=== PATIENT | female | born 1985 | race Caucasian/White ===

== ENCOUNTER 2017-06-14 19:56 | Emergency (ER) | payer SELFPAY, MEDICAID ==
[2017-06-14] MEDS: ACETAMINOPHEN 325 MG TAB PO (23:23)
[2017-06-14] MEDS: AMOXICILLIN SUSP 400 MG/5 ML ORAL SYRINGE *ED PO (23:23)
== END 2017-06-14 23:53 | disposition home or self-care (01) ==
LOC: M ED 19:56
DX: J02.0 Streptococcal pharyngitis (principal); F17.210 Nicotine dependence, cigarettes, uncomplicated
CPT/HCPCS: 87880

== ENCOUNTER 2019-05-31 01:54 | Emergency (ER) | payer OTHER, SELFPAY ==
[~2019-05-31] VITALS: Ht 154.9 cm; Wt 85.1 kg
[~2019-05-31 01:54] MED LIST: AMOX400S2 PO; IBUP-1114 PO
[2019-05-31] MEDS ORDERED: GI COCKTAIL 50ML BTL(HYOSCYAMINE/MAALOX/LIDOCAINE VISCOUS)(1:3:1) PO ONE (02:15)
[2019-05-31 02:35] LABS: BASO % 0.5 % (0.0-1.0); EOS # 0.1 10^3/uL (0.0-0.5); EOS % 1.8 % (0.0-3.0); HEMATOCRIT 40.9 % (36.0-47.0); HEMOGLOBIN 13.5 g/dl (12.0-15.5); LYMPH # 2.3 10^3/uL (1.5-5.0); LYMPH % 36.6 % (24.0-44.0); MEAN CORPUSCULAR HEMOGLOBIN 30.6 pg (27.0-33.0); MEAN CORPUSCULAR VOLUME 92.7 fl (80.0-96.0); MONO # 0.5 10^3/uL (0.0-0.8); MONO % 7.5 % (0.0-5.0); NEUTROPHILS # 3.4 10^3/uL (1.5-8.5); NEUTROPHILS % 53.4 % (36.0-66.0); PLATELET COUNT, AUTOMATED 128 10^3/uL (150-450); RED BLOOD COUNT 4.41 10^6/uL (4.00-5.40); WHITE BLOOD COUNT 6.3 10^3/uL (4.0-10.0)
[2019-05-31 02:51] LABS: HCG, SERUM QUALITATIVE NEGATIVE (NEGATIVE)
[2019-05-31 02:54] LABS: ALBUMIN 3.2 GM/DL (3.2-5.2); ALT/SGPT 23 U/L (12-78); BILIRUBIN,DIRECT 0.1 MG/DL (0.0-0.2); BILIRUBIN,TOTAL 0.4 MG/DL (0.2-1.0); BLOOD UREA NITROGEN 12 MG/DL (7-18); CALCIUM LEVEL 8.2 MG/DL (8.5-10.1); CARBON DIOXIDE LEVEL 28 MEQ/L (21-32); CHLORIDE LEVEL 110 MEQ/L (98-107); CREATININE FOR GFR 0.74 MG/DL (0.55-1.30); GLOMERULAR FILTRATION RATE > 60.0 (>60); GLUCOSE, FASTING 89 MG/DL (70-100); LIPASE 106 U/L (73-393); POTASSIUM SERUM 4.1 MEQ/L (3.5-5.1); SODIUM LEVEL 142 MEQ/L (136-145); TOTAL PROTEIN 6.4 GM/DL (6.4-8.2)
[2019-05-31] MEDS ORDERED: MORPHINE 10 MG/ML 1ML VIAL (J2270) IM ONE (04:30)
--- NOTE | 2019-05-31 04:33 | REPVR ---
PROCEDURE INFORMATION: Exam: US Abdomen Limited, Right Upper Quadrant Exam date and time: 05/31/2019 3:56 AM Age: 34 years old Clinical indication: Abdominal pain; Epigastric; Additional info: Gb/biliary eval TECHNIQUE: Imaging protocol: Real-time ultrasound of the abdomen with image documentation. Examination was focused on the right upper quadrant. COMPARISON: No relevant prior studies available. FINDINGS: Liver: The liver demonstrates no focal defects and measures 14.7 cm. Gallbladder: The gallbladder demonstrates multiple gallstones with shadowing. There is no wall thickening measuring 2 mm. Common bile duct: The CBD measures 4 mm. Pancreas: The pancreatic head and body appear normal. The tail is not seen due to gas shadowing. Right kidney: The right kidney is normal measuring 10.2 cm with no hydronephrosis. IMPRESSION: 1. Cholelithiasis with multiple gallstones. No gallbladder wall thickening. 2. Otherwise negative right upper quadrant sonogram. Electronically signed by: Jc Smith On 05/31/2019 04:32:49 AM
[2019-05-31] MEDS ORDERED: NORCO 5/325MG TABLET (BULK FOR ED) PO ONE (05:15)
[2019-05-31 05:18] VITALS: BP 155/67
== END 2019-05-31 05:28 | disposition home or self-care (01) ==
LOC: M ED 01:54
DX: K80.20 Calculus of gallbladder without cholecystitis without obstruction (principal)
CPT/HCPCS: 76705; 80048; 80076; 83690; 84703; 85025; 96372; 99283; J2270

== ENCOUNTER → 2019-08-11 | Outpatient (CLI) | payer OTHER | LOC: M LABSMTC 09:47 | PROVIDERS: ATTEND Anesthesiology | DX: Z11.59 Encounter for screening for other viral diseases (principal) ==

== ENCOUNTER → 2019-08-11 | Outpatient (CLI) | payer OTHER ==
--- NOTE | 2019-08-11 16:06 | ECGEPIP ---
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
== END ==
LOC: M EKG 13:15
PROVIDERS: ATTEND Surgery
DX: Z01.818 Encounter for other preprocedural examination (principal); K80.10 Calculus of gallbladder with chronic cholecystitis without obstruction; I45.10 Unspecified right bundle-branch block

== ENCOUNTER 2019-08-14 07:50 | Day surgery (SDC) | payer OTHER ==
[~2019-08-14] VITALS: Ht 154.9 cm; Wt 27.7 kg
[~2019-08-14 07:50] MED LIST changes: +LIDOCAINE 1% MDV 20ML VIAL SQ PRN
[2019-08-14] MEDS ORDERED: MIDAZOLAM INJ 2MG/2ML VIAL (J2250 PER 1MG) As Ordered ONE (08:07)
[2019-08-14] MEDS ORDERED: fentaNYL 250 MCG/5 ML INJECTION (J3010) As Ordered ONE (08:07)
[2019-08-14] MEDS ORDERED: ROCURONIUM BROMIDE 50 MG/5 ML VIAL As Ordered ONE ×2 (08:08→10:51)
[2019-08-14] MEDS ORDERED: dexameTHASONE 4 MG/ML 1ML VIAL (J1100 PER 1MG) As Ordered ONE (08:08)
[2019-08-14] MEDS ORDERED: LIDOCAINE 2% 100MG/5ML SDV (FOR ANES.) As Ordered ONE (08:08)
[2019-08-14] MEDS ORDERED: propofoL 200 MG/20 ML VIAL As Ordered ONE (08:08)
[2019-08-14] MEDS ORDERED: KETOROLAC 60 MG/2 ML VIAL As Ordered ONE (08:08)
[2019-08-14] MEDS ORDERED: ONDANSETRON 4MG/2ML VIAL As Ordered ONE (08:08)
[2019-08-14] MEDS ORDERED: AMPICILLIN SOD/SULBACTAM SOD 3 GM in D5W MINI-BAG PLUS 100 ML IV ONE (08:45)
[2019-08-14] MEDS ORDERED: LR 1,000 ML IV ONE (08:45)
[2019-08-14] MEDS ORDERED: LIDOCAINE 1% SDV 30ML VIAL As Ordered ONE (09:32)
[2019-08-14] MEDS ORDERED: BUPIVACAINE HCL 0.25% 30ML VIAL As Ordered ONE (09:32)
[2019-08-14] MEDS ORDERED: SUGAMMADEX SODIUM 500 MG/5 ML VIAL (BRIDION) As Ordered ONE (10:06)
[2019-08-14] MEDS ORDERED: ACETAMINOPHEN 1000MG 100ML IV BTL (OFIRMEV) (J0131 PER 10MG) As Ordered ONE (10:25)
[2019-08-14] MEDS ORDERED: HYDROmorphone HCL 2 MG/ML 1ML VIAL (J1170) As Ordered ONE (11:59)
[2019-08-14] MEDS ORDERED: NORCO, ANEXSIA 5/325MG TABLET (HYDROcodone/ACETAMINOPHEN) PO PRN (12:30)
[2019-08-14] MEDS ORDERED: METOCLOPRAMIDE INJ 10MG/2ML VIAL (J2765 PER 1) IV PRN (12:30)
[2019-08-14] MEDS ORDERED: PERCOCET 5MG/325MG TAB PO PRN (12:30)
[2019-08-14] MEDS ORDERED: MORPHINE 2 MG/ML 1ML VIAL (J2270) IV PRN (12:30)
[2019-08-14] MEDS ORDERED: fentaNYL 100 MCG/2 ML INJECTION (J3010) IV PRN (12:30)
[2019-08-14] MEDS ORDERED: ONDANSETRON 4MG/2ML VIAL IV PRN ×2 (12:30)
[2019-08-14] MEDS ORDERED: LR 1,000 ML IV SCH (12:30)
--- NOTE | 2019-08-14 12:52 | ROOPDOC ---
[facility] Report Of Operation Report of Operation DATE OF PROCEDURE: 08/14/19 PREPROCEDURE DIAGNOSES: Cholelithiasis with history of acute cholecystitis. POSTPROCEDURE DIAGNOSES: Cholelithiasis with chronic cholecystitis, epigastric hernia. PROCEDURE: Robotic-assisted laparoscopic cholecystectomy with primary repair of epigastric hernia, right side transversus abdominis plane block under laparoscopic guidance using 1% lidocaine and 1/4% Marcaine. SURGEON: Jorge Alejandro MD HORTICULTURAL WORKER: , ANESTHESIA: . ESTIMATED BLOOD LOSS: Approximately mL. COMPLICATIONS: . REMARKS: . PROCEDURE NOTE: . DESCRIPTION OF PROCEDURE: . JORGE ALEJANDRO MD August 14, 2019 12:52
[2019-08-14 14:17] VITALS: BP 137/80
[2019-08-14] MEDS ORDERED: KETOROLAC 30 MG/ML 1ML VIAL IV PRN (18:00)
== END 2019-08-14 14:39 | disposition home or self-care (01) ==
LOC: M SDC 07:50
PROVIDERS: ATTEND Surgery
DX: K80.20 Calculus of gallbladder without cholecystitis without obstruction (principal); K43.6 Other and unspecified ventral hernia with obstruction, without gangrene; F17.218 Nicotine dependence, cigarettes, with other nicotine-induced disorders; F12.10 Cannabis abuse, uncomplicated
CPT/HCPCS: 47562; 49570; 64488; 88304; J0131; J1100; J1170; J1885; J2250; J2405; J3010

== ENCOUNTER 2023-07-31 10:18 | Emergency (ER) | payer OTHER ==
[~2023-07-31] VITALS: Ht 154.9 cm; Wt 79.0 kg
[~2023-07-31 10:18] MED LIST changes: -LIDOCAINE 1% MDV 20ML VIAL SQ PRN
[2023-07-31] MEDS: IBUPROFEN 800 MG TAB PO ONE (10:55)
[2023-07-31] MEDS ORDERED: CEFD1CAP9 PO (11:23)
[2023-07-31] MEDS: CEFDINIR 300 MG CAP (OMNICEF) PO ONE (11:28)
[2023-07-31 11:56] VITALS: BP 133/70; TEMP 98.2; O2SAT 98
== END 2023-07-31 12:05 | disposition home or self-care (01) ==
LOC: M ED 10:37
DX: N39.0 Urinary tract infection, site not specified (principal); Z79.2 Long term (current) use of antibiotics

== ENCOUNTER → 2024-03-30 | Outpatient (REF) | payer OTHER ==
[~2024-03-30] MED LIST changes: +CEFD1CAP9 PO
[2024-03-30 21:01] LABS: APPEARANCE, URINE MANUAL CLOUDY (CLEAR); COLOR, URINE MANUAL YELLOW (YELLOW)
[2024-03-30 21:05] LABS: GLUCOSE, URINE (UA) MANUAL NEGATIVE (NEGATIVE); KETONE, URINE MANUAL NEGATIVE (NEGATIVE); PROTEIN, URINE MANUAL 1+ mg/dL (NEGATIVE)
[2024-03-30 21:06] LABS: BILIRUBIN, URINE MANUAL NEGATIVE (NEGATIVE); BLOOD URINE MANUAL POSITIVE (NEGATIVE); LEUKOCYTE ESTERASE, URINE MAN POSITIVE (NEGATIVE); NITRITE, URINE MANUAL POSITIVE (NEGATIVE); UROBILINOGEN, URINE MANUAL 1 MG mg/dl (NORMAL)
[2024-03-30 21:08] LABS: WBC, URINE 20-30 /hpf (0-3)
[2024-03-30 21:09] LABS: BACTERIA, URINE MOD AMOUNT; SQUAMOUS EPITHELIAL CELL URINE SMALL AMOUNT /hpf (SMALL AMT)
[2024-03-30 21:54] LABS: HYALINE CAST, URINE NONE SEEN /lpf (0-1)
[2024-03-30 22:14] LABS: Trichomonas vaginalis (AMP) POSITIVE (NEGATIVE)
[2024-03-30 22:49] LABS: GC DNA AMPLIFICATION NEGATIVE (NEGATIVE)
== END ==
LOC: M LAB REF 20:40
PROVIDERS: ATTEND Physician Assistant
DX: N39.0 Urinary tract infection, site not specified (principal); Z11.3 Encounter for screening for infections with a predominantly sexual mode of transmission

== ENCOUNTER → 2024-04-14 | Outpatient (CLI) | payer OTHER | LOC: M RAD 09:21 | PROVIDERS: ATTEND Physician Assistant Medical | DX: K43.9 Ventral hernia without obstruction or gangrene (principal); R10.9 Unspecified abdominal pain ==

== ENCOUNTER → 2024-06-02 | Outpatient (REF) | payer OTHER ==
[2024-06-02 13:21] LABS: BASO % 0.5 % (0.0-1.0); EOS # 0.2 10^3/uL (0.0-0.5); EOS % 2.9 % (0.0-3.0); HEMATOCRIT 38.5 % (36.0-47.0); HEMOGLOBIN 12.7 g/dl (12.0-15.5); LYMPH # 1.9 10^3/uL (1.5-5.0); LYMPH % 34.7 % (24.0-44.0); MEAN CORPUSCULAR HEMOGLOBIN 31.1 pg (27.0-33.0); MEAN CORPUSCULAR VOLUME 94.4 fl (80.0-96.0); MONO # 0.5 10^3/uL (0.0-0.8); MONO % 8.4 % (2.0-8.0); NEUTROPHILS # 2.9 10^3/uL (1.5-8.5); NEUTROPHILS % 53.3 % (36.0-66.0); PLATELET COUNT, AUTOMATED 216 10^3/uL (150-450); RED BLOOD COUNT 4.08 10^6/uL (4.00-5.40); WHITE BLOOD COUNT 5.5 10^3/uL (4.0-10.0)
[2024-06-02 13:35] LABS: HEMOGLOBIN A1c 4.6 % (4.0-6.0)
[2024-06-02 13:48] LABS: ALKALINE PHOSPHATASE 94 U/L (35-104); ALT/SGPT 91 U/L (7.0-40); AST/SGOT 28 U/L (<34); BILIRUBIN,TOTAL 0.5 MG/DL (0.3-1.2); BLOOD UREA NITROGEN 11 MG/DL (9-23); CALCIUM LEVEL 8.5 MG/DL (8.5-10.1); CARBON DIOXIDE LEVEL 28 MMOL/L (20-31); CHLORIDE LEVEL 107 MMOL/L (98-107); CHOLESTEROL LEVEL 163 MG/DL (<200); CREATININE FOR GFR 0.77 MG/DL (0.55-1.30); GLOMERULAR FILTRATION RATE > 60.0 (>58); GLUCOSE, FASTING 76 MG/DL (60-100); LDL CHOLESTEROL 75.4 MG/DL (<100); MAGNESIUM LEVEL 1.7 MG/DL (1.8-2.4); POTASSIUM SERUM 4.1 MMOL/L (3.5-5.1); SODIUM LEVEL 143 MMOL/L (136-145); TRIGLYCERIDES LEVEL 68 MG/DL (<150)
[2024-06-02 13:52] LABS: THYROID STIMULATING HORMONE 0.985 uIU/ML (0.55-4.78); TOTAL 25(OH) VITAMIN D 10.3 NG/ML (20.0-100.0)
== END ==
LOC: M LAB REF 12:13
PROVIDERS: ATTEND Nurse Practitioner Family
DX: E55.9 Vitamin D deficiency, unspecified (principal); E66.3 Overweight

== ENCOUNTER → 2024-06-26 | Day surgery (SDC) | payer OTHER ==
[~2024-06-26] VITALS: Ht 152.4 cm; Wt 78.7 kg
[~2024-06-26] MED LIST changes: +ACETAMINOPHEN 1000MG/100ML IV BAG As Ordered ONE; +KETOROLAC 30 MG/ML 1ML VIAL As Ordered ONE; +LIDOCAINE 2% 100MG/5ML SDV (FOR ANES.) As Ordered ONE; +MIDAZOLAM INJ 2MG/2ML VIAL As Ordered ONE; +ONDANSETRON 4MG 2ML VIAL As Ordered ONE; +ROCURONIUM BROMIDE 50MG/5ML VIAL As Ordered ONE; +SUGAMMADEX SODIUM 500 MG/5 ML VIAL (BRIDION) As Ordered ONE; +ceFAZolin SOD 2 GM IV ONCE IV ONE; +fentaNYL 100 MCG/2 ML INJECTION As Ordered ONE; +propofoL 200 MG/20 ML VIAL As Ordered ONE
[2024-06-26 14:00] VITALS: BP 134/63; TEMP 98.3; O2SAT 100
[2024-06-26] MEDS: LR 1,000 ML IV SCH (14:35)
[2024-06-26] MEDS: CelecoXIB 400 MG CAP PO ONE (14:35)
== END | disposition home or self-care (01) ==
LOC: M SDC 13:55
PROVIDERS: ATTEND Surgery
DX: K43.2 Incisional hernia without obstruction or gangrene (principal); Z53.8 Procedure and treatment not carried out for other reasons